=== PATIENT | female | born 1960 | race Two or more races ===

== ENCOUNTER 2017-06-07 08:52 | Outpatient (CLI) | payer OTHER ==
[~2017-06-07 08:52] MED LIST: PREVACID30 MG; SYNTHROID50 MCG
== END 2017-06-07 08:54 | disposition home or self-care (01) ==
LOC: SONOGRAMA 08:52
DX: E04.1 Nontoxic single thyroid nodule (principal)

== ENCOUNTER 2018-06-23 14:11 | Outpatient (CLI) | payer OTHER | END 2018-06-23 15:00 | disposition home or self-care (01) | LOC: NUCLEAR 14:11 | DX: M81.0 Age-related osteoporosis without current pathological fracture (principal); M85.9 Disorder of bone density and structure, unspecified; M89.9 Disorder of bone, unspecified ==

== ENCOUNTER 2018-07-21 08:23 | Outpatient (CLI) | payer OTHER | END 2018-07-21 08:29 | disposition home or self-care (01) | LOC: SONOGRAMA 08:23 | DX: E04.2 Nontoxic multinodular goiter (principal) ==

== ENCOUNTER 2020-05-31 10:53 | Outpatient (CLI) | payer OTHER | END 2020-05-31 10:55 | disposition home or self-care (01) | LOC: SONOGRAMA 10:53 | PROVIDERS: ATTEND Internal Medicine Endocrinology, Diabetes & Metabolism | DX: E03.8 Other specified hypothyroidism (principal); E04.2 Nontoxic multinodular goiter ==

== ENCOUNTER 2020-06-26 09:50 | Outpatient (CLI) | payer OTHER | END 2020-06-26 10:05 | disposition home or self-care (01) | LOC: NUCLEAR 09:50 | PROVIDERS: ATTEND Internal Medicine Rheumatology | DX: M81.0 Age-related osteoporosis without current pathological fracture (principal); M85.88 Other specified disorders of bone density and structure, other site ==

== ENCOUNTER 2021-06-09 10:18 | Outpatient (CLI) | payer OTHER | END 2021-06-09 10:29 | disposition home or self-care (01) | LOC: SONOGRAMA 10:18 | PROVIDERS: ATTEND Internal Medicine Endocrinology, Diabetes & Metabolism | DX: E04.2 Nontoxic multinodular goiter (principal); E03.8 Other specified hypothyroidism ==

== ENCOUNTER 2021-07-16 13:45 | Outpatient (CLI) | payer OTHER | END 2021-07-16 14:02 | disposition home or self-care (01) | LOC: SONOGRAMA 13:45 | PROVIDERS: ATTEND Obstetrics & Gynecology | DX: R10.2 Pelvic and perineal pain (principal) ==

== ENCOUNTER 2021-10-29 11:50 | Outpatient (CLI) | payer OTHER | END 2021-10-29 11:56 | disposition home or self-care (01) | LOC: MAMO-SONO 11:50 | PROVIDERS: ATTEND Obstetrics & Gynecology | DX: Z12.31 Encounter for screening mammogram for malignant neoplasm of breast (principal); N60.11 Diffuse cystic mastopathy of right breast; N60.12 Diffuse cystic mastopathy of left breast; R10.2 Pelvic and perineal pain; N28.1 Cyst of kidney, acquired ==

== ENCOUNTER 2022-07-02 14:39 | Outpatient (CLI) | payer OTHER | END 2022-07-02 14:47 | disposition home or self-care (01) | LOC: SONOGRAMA 14:39 | PROVIDERS: ATTEND Internal Medicine | DX: E03.8 Other specified hypothyroidism (principal) ==

== ENCOUNTER → 2022-07-02 | Outpatient (CLI) | payer OTHER | END | disposition home or self-care (01) | LOC: NUCLEAR 06-29 13:00 | PROVIDERS: ATTEND Internal Medicine | DX: M81.0 Age-related osteoporosis without current pathological fracture (principal) ==

== ENCOUNTER 2024-07-03 13:24 | Outpatient (CLI) | payer OTHER | END 2024-07-03 13:25 | disposition home or self-care (01) | LOC: NUCLEAR 13:24 | PROVIDERS: ATTEND Internal Medicine | DX: M81.0 Age-related osteoporosis without current pathological fracture (principal) ==